=== PATIENT | male | born 1980 | race Caucasian/White ===

== ENCOUNTER 2019-05-29 08:44 | Emergency (ER) | payer OTHER ==
[~2019-05-29] VITALS: Ht 188 cm; Wt 142.9 kg
[2019-05-29 09:15] VITALS: BP 134/88
[2019-05-29] MEDS ORDERED: TETANUS-DIPTH-ACEL PERTUSSIS 0.5ML SYRG IM ONE (09:30)
[2019-05-29] MEDS ORDERED: IBUPROFEN 800 MG TAB PO ONE (09:45)
== END 2019-05-29 10:03 | disposition home or self-care (01) ==
LOC: ER 08:44
DX: S01.01XA Laceration without foreign body of scalp, initial encounter (principal); F17.210 Nicotine dependence, cigarettes, uncomplicated; W20.8XXA Other cause of strike by thrown, projected or falling object, initial encounter; Y93.89 Activity, other specified; Y92.89 Other specified places as the place of occurrence of the external cause; Y99.0 Civilian activity done for income or pay
CPT/HCPCS: 12002; 90471; 90715